=== PATIENT | female | born 1995 | race Caucasian/White ===

== ENCOUNTER 2017-01-24 00:39 | Emergency (ER) | payer OTHER ==
[2017-01-24 04:09] VITALS: BP 136/51
== END 2017-01-24 04:09 | disposition home or self-care (01) ==
LOC: ED 00:39
DX: L50.9 Urticaria, unspecified (principal)
CPT/HCPCS: J0171; J7512; Q0163

== ENCOUNTER 2017-01-25 09:41 | Emergency (ER) | payer OTHER ==
[~2017-01-25] VITALS: Ht 154.9 cm; Wt 85.7 kg
[2017-01-25 12:01] VITALS: BP 119/67
== END 2017-01-25 12:01 | disposition home or self-care (01) ==
LOC: ED 09:41
DX: T78.3XXA Angioneurotic edema, initial encounter (principal); X58.XXXA Exposure to other specified factors, initial encounter; Y93.89 Activity, other specified; Y99.8 Other external cause status; Y92.89 Other specified places as the place of occurrence of the external cause
CPT/HCPCS: J0171; J1200; J2930; J3490

== ENCOUNTER 2019-12-28 10:57 | Emergency (ER) | payer OTHER ==
[~2019-12-28] VITALS: Ht 165.1 cm; Wt 90.3 kg
[2019-12-28 11:05] VITALS: Ht 165.1 cm; Wt 90.3 kg
[2019-12-28 12:16] VITALS: BP 110/73
== END 2019-12-28 12:16 | disposition home or self-care (01) ==
LOC: ED 10:57
DX: N39.0 Urinary tract infection, site not specified (principal)